=== PATIENT | female | born 1940 | race Caucasian/White ===

== ENCOUNTER 2017-06-26 16:08 | Inpatient (IN) | payer OTHER ==
[~2017-06-26] VITALS: Ht 167.6 cm; Wt 54.5 kg
[~2017-06-26 16:08] MED LIST: AMIODARONE HCL200 MG PO; AMLODIPINE BESY10 MG PO; BENAZEPRIL HCL10 MG PO; BENTYL10 MG PO; CALTRATE 600 +1 EAC2 PO; CARDIZEM CD,CA180 MG PO; CARDIZEM CD360 MG PO; CARDIZEM90 MG PO; CENTRUM SILVER1 EAC3 PO; CIPRO250 MG PO; DILAUDID2 MG PO; DOCUSATE SODIU100 MG PO; ELIQUIS5 MG PO; ENDOCET 5-3251 EACH PO; FISH OIL300 MG PO; HYDROCHLOROTH12.5 M3 PO; LEVOTHYROXINE125 MCG PO; LOPRESSOR25 MG PO; LORAZEPAM0.5 MG PO; MILK OF MAGNESI10 ML PO; MIRALAX255 GM PO; ONDANSETRON4 MG/2 ML PO; PANTOPRAZOLE SO40 MG PO; PERCOCET 5/31 TABLET PO; POLYETHYLENE GL17 GM PO; SIMVASTATIN40 MG PO; SYNTHROID100 MCG PO; TAMBOCOR50 MG PO; TRAMADOL HCL50 MG PO; TYLENOL EXTRA500 MG PO; ZOFRAN4 MG PO; hydrochlorothiazide PO
[2017-06-26 18:19] LABS: ADD MIUA? YES; BILIRUBIN NEGATIVE; BLOOD SMALL; COLOR YELLOW ((YELLOW)); GLUCOSE (STRIP) >=500; KETONES NEGATIVE; LEUKOCYTES SMALL; NITRITE NEGATIVE; PROTEIN (STRIP) 30; SPECIFIC GRAVITY 1.015 (1.000-1.030); UROBILINOGEN 0.2 MG/DL (0.2-1.0)
[2017-06-26 18:22] LABS: EOSINOPHIL (%) 0.1 % (0-5); HEMATOCRIT 44.9 % (36.0-46.0); IMMATURE GRANULOCYTE (%) 0.3 % (0.0-0.7); INSTRUMENT ABS NEUTROPHIL CT 5.7 K/uL; LYMPHOCYTE COUNT 0.8 K/uL (1.0-2.8); MCH 31.3 PG (29.0-34.0); MCHC 32.3 G/DL (30.0-36.0); MCV 96.8 FL (83-99); MEAN PLAT.VOLUME 9.7 uM^3 (9.5-12.4); MONOCYTE (%) 6.7 % (3-12); MONOCYTE COUNT 0.5 K/uL (0-0.8); NEUTROPHIL (%) 80.8 % (45-76); NEUTROPHIL COUNT 5.7 K/uL (1.8-6.4); PLATELET COUNT 393 K/uL (156-360); RBC DIS.WIDTH-CV 12.8 % (11.8-14.6); RBC DIS.WIDTH-SD 45.7 % (39-53); RED BLOOD COUNT 4.64 M/uL (3.80-5.20)
[2017-06-26 18:23] LABS: BACTERIA NONE SEEN /HPF; EPITHELIAL CELLS RARE /HPF; MUCUS TRACE /LPF; RED BLOOD CELLS 0-5 /HPF (0-5); WHITE BLOOD CELLS 0-5 /HPF (0-5)
[2017-06-26 18:30] LABS: CHLORIDE 105 mEq/L (99-109); POTASSIUM 3.6 mEq/L (3.7-5.4); SODIUM 138 mEq/L (136-147)
[2017-06-26 18:32] LABS: GLUCOSE 224 mg/dL (70-99)
[2017-06-26 18:33] LABS: ANION GAP 8 MEQ/L (2-14)
[2017-06-26 18:34] LABS: TOTAL BILIRUBIN 0.4 mg/dL (0.0-1.0)
[2017-06-26 18:36] LABS: ALKALINE PHOSPHATASE 94 IU/L (3-129); GFR ESTIMATE (CALCULATED) 46 mL/min/
[2017-06-26 18:37] LABS: UREA NITROGEN (BUN) 16 mg/dL (9-23)
[2017-06-26 18:41] LABS: TROP-I INTERPRETATION NEGATIVE; TROPONIN-I < 0.01 ng/mL (0.0-0.30)
[2017-06-26] MEDS ORDERED: MEGACE 40 MG40 MG/ML PO (20:15)
[2017-06-26] MEDS ORDERED: FLECAINIDE ACET50 MG PO (20:16)
[2017-06-26] MEDS ORDERED: TAMOXIFEN CITRA20 MG PO (20:16)
[2017-06-26] MEDS ORDERED: CARTIA XT180 MG PO (20:16)
[2017-06-26 21:03] VITALS: BP 177/89
[2017-06-27] VITALS (7 sets, daily range): BP systolic 132–154; BP diastolic 68–77
[2017-06-28] VITALS (8 sets, daily range): BP systolic 134–181; BP diastolic 67–86
[2017-06-28 05:27] LABS: HEMATOCRIT 41.3 % (36.0-46.0); MCH 30.8 PG (29.0-34.0); MCV 96.5 FL (83-99); MEAN PLAT.VOLUME 10.2 uM^3 (9.5-12.4); PLATELET COUNT 321 K/uL (156-360); RBC DIS.WIDTH-SD 46.4 % (39-53); RED BLOOD COUNT 4.28 M/uL (3.80-5.20); WHITE BLOOD COUNT 5.6 K/uL (4.1-10.2)
[2017-06-28 05:57] LABS: ANION GAP 9 MEQ/L (2-14); CHLORIDE 107 MEQ/L (99-109); GFR ESTIMATE (CALCULATED) 57 mL/min/; GLUCOSE 110 mg/dL (70-99); POTASSIUM 4.1 MEQ/L (3.7-5.4); SAMPLE HEMOLYSIS CHECK 0; SAMPLE ICTERIC CHECK 0; SAMPLE LIPEMIA CHECK 0; SODIUM 140 MEQ/L (136-147); UREA NITROGEN (BUN) 9 mg/dL (9-23)
[2017-06-29 04:04] VITALS: BP 139/70
[2017-06-29 07:04] VITALS: BP 139/70
[2017-06-29 08:00] VITALS: BP 156/78
[2017-06-29 11:43] VITALS: BP 147/70
[2017-06-29 16:26] VITALS: BP 167/74
[2017-06-29 20:12] VITALS: BP 140/69
[2017-06-30] VITALS: BP 155/72
[2017-06-30 04:10] VITALS: BP 142/71
[2017-06-30 07:36] VITALS: BP 165/79
[2017-06-30 11:16] VITALS: BP 141/68
[2017-06-30 15:40] VITALS: BP 157/75
== END 2017-06-30 20:05 | disposition home or self-care (01) | DRG 375 ==
LOC: EME → EDBD 16:08 → EME 16:08 → 4EAST 20:15 → EDOF 20:15 → ENRESERV 20:30 → 4EAST 20:56 → ENRESERV 06-28 15:48 → 5EAST 06-28 17:40
PROVIDERS: Emergency Medicine; Family Medicine
DX: C18.9 Malignant neoplasm of colon, unspecified (principal); C78.5 Secondary malignant neoplasm of large intestine and rectum; C78.6 Secondary malignant neoplasm of retroperitoneum and peritoneum; R64 Cachexia; C79.70 Secondary malignant neoplasm of unspecified adrenal gland; C78.00 Secondary malignant neoplasm of unspecified lung; C78.7 Secondary malignant neoplasm of liver and intrahepatic bile duct; I48.2 Chronic atrial fibrillation; I10 Essential (primary) hypertension; E78.5 Hyperlipidemia, unspecified; E89.0 Postprocedural hypothyroidism; K21.9 Gastro-esophageal reflux disease without esophagitis; F41.9 Anxiety disorder, unspecified; N81.2 Incomplete uterovaginal prolapse; Z17.0 Estrogen receptor positive status [ER+]; Z68.1 Body mass index [BMI] 19.9 or less, adult; Z85.850 Personal history of malignant neoplasm of thyroid; Z85.42 Personal history of malignant neoplasm of other parts of uterus; Z86.73 Personal history of transient ischemic attack (TIA), and cerebral infarction without residual deficits
CPT/HCPCS: 74176; 74177; 80048; 80053; 81003; 84484; 85025; 85027; 93005; 99281; 99285; J0692; J0744; J1644; J7030; S0030

== ENCOUNTER 2017-10-17 07:24 | Inpatient (IN) | payer OTHER ==
[~2017-10-17] VITALS: Ht 157.5 cm; Wt 95.6 kg
[~2017-10-17 07:24] MED LIST changes: +CARTIA XT180 MG PO; +FLECAINIDE ACET50 MG PO; +MEGACE 40 MG40 MG/ML PO; +TAMOXIFEN CITRA20 MG PO
[2017-10-17] MEDS ORDERED: ONCE DAILY1 EACH PO (07:42)
[2017-10-17] MEDS ORDERED: CARTIA XT180 MG PO (07:43)
[2017-10-17] MEDS ORDERED: ASPIR 8181 M1 PO (07:44)
[2017-10-17] MEDS ORDERED: VITAMIN C1000 MG PO (07:46)
[2017-10-17] MEDS ORDERED: FISH OIL 1,0001 EAC7 PO (07:46)
[2017-10-17] MEDS ORDERED: CALTRATE 600 +1 EAC1 PO (07:46)
[2017-10-17 08:14] LABS: BASOPHIL (%) 0.3 % (0-1); BASOPHIL COUNT 0.1 K/uL (0-0.1); EOSINOPHIL (%) 0 % (0-5); HEMATOCRIT 40.3 % (36.0-46.0); HEMOGLOBIN 12.6 G/DL (11.9-15.5); IMMATURE GRANULOCYTE (%) 0.5 % (0.0-0.7); LYMPHOCYTE (%) 3.4 % (15-42); LYMPHOCYTE COUNT 0.6 K/uL (1.0-2.8); MCH 30.4 PG (29.0-34.0); MCHC 31.3 G/DL (30.0-36.0); MCV 97.3 FL (83-99); MONOCYTE (%) 4.6 % (3-12); MONOCYTE COUNT 0.9 K/uL (0-0.8); NEUTROPHIL (%) 91.2 % (45-76); NEUTROPHIL COUNT 17.1 K/uL (1.8-6.4); PLATELET COUNT 462 K/uL (156-360); RBC DIS.WIDTH-CV 15.4 % (11.8-14.6); RBC DIS.WIDTH-SD 55.4 % (39-53); RED BLOOD COUNT 4.14 M/uL (3.80-5.20); WHITE BLOOD COUNT 18.7 K/uL (4.1-10.2)
[2017-10-17 08:27] LABS: CHLORIDE 105 mEq/L (99-109); SODIUM 139 mEq/L (136-147)
[2017-10-17 08:28] LABS: GLUCOSE 171 mg/dL (70-99)
[2017-10-17 08:32] LABS: CREATININE 3.1 mg/dL (0.6-1.3); GFR ESTIMATE (CALCULATED) 15 mL/min/
[2017-10-17 08:33] LABS: UREA NITROGEN (BUN) 56 mg/dL (9-23)
[2017-10-17 08:39] LABS: INTER. NORMALIZED RATIO 1.1
[2017-10-17 08:44] LABS: POTASSIUM 6.6 mEq/L (3.7-5.4)
[2017-10-17] MEDS ORDERED: ARIMIDEX1 MG PO (10:39)
[2017-10-17] MEDS ORDERED: FOSAMAX70 MG PO (10:40)
[2017-10-17] MEDS ORDERED: ALEVE220 MG PO (10:45)
[2017-10-17 15:23] LABS: CHLORIDE 105 mEq/L (99-109); POTASSIUM 5.3 mEq/L (3.7-5.4); SODIUM 138 mEq/L (136-147)
[2017-10-17 15:25] LABS: GLUCOSE 179 mg/dL (70-99)
[2017-10-17 15:29] LABS: GFR ESTIMATE (CALCULATED) 19 mL/min/
[2017-10-17 15:30] LABS: UREA NITROGEN (BUN) 51 mg/dL (9-23)
[2017-10-17 15:32] LABS: CREATININE 2.6 mg/dL (0.6-1.3)
[2017-10-17 16:17] VITALS: BP 130/65
[2017-10-17 23:40] VITALS: BP 91/53
[2017-10-18 04:36] VITALS: BP 102/52
[2017-10-18 07:07] LABS: BASOPHIL (%) 0.2 % (0-1); EOSINOPHIL (%) 0.1 % (0-5); HEMATOCRIT 42.4 % (36.0-46.0); HEMOGLOBIN 12.7 G/DL (11.9-15.5); IMMATURE GRANULOCYTE (%) 0.5 % (0.0-0.7); LYMPHOCYTE (%) 3.3 % (15-42); LYMPHOCYTE COUNT 0.6 K/uL (1.0-2.8); MCH 30.2 PG (29.0-34.0); MONOCYTE (%) 6.2 % (3-12); MONOCYTE COUNT 1.1 K/uL (0-0.8); NEUTROPHIL (%) 89.7 % (45-76); NEUTROPHIL COUNT 15.6 K/uL (1.8-6.4); PLATELET COUNT 414 K/uL (156-360); RBC DIS.WIDTH-CV 15.8 % (11.8-14.6); RBC DIS.WIDTH-SD 58.4 % (39-53); WHITE BLOOD COUNT 17.4 K/uL (4.1-10.2)
[2017-10-18 07:41] VITALS: BP 96/53
[2017-10-18 09:44] LABS: ALBUMIN 2.5 G/DL (3.2-4.8); ALKALINE PHOSPHATASE 73 IU/L (3-129); ALT (GPT) 8 IU/L (3-49); AST (GOT) 21 IU/L (2-34); CHLORIDE 106 MEQ/L (99-109); CREATININE 2.5 MG/DL (0.6-1.3); DIRECT BILIRUBIN 0.1 mg/dL (0.0-0.3); GFR ESTIMATE (CALCULATED) 20 mL/min/; GLUCOSE 145 mg/dL (70-99); POTASSIUM 5.8 MEQ/L (3.7-5.4); SODIUM 140 MEQ/L (136-147); TOTAL BILIRUBIN 0.3 MG/DL (0.0-1.0); UREA NITROGEN (BUN) 50 mg/dL (9-23)
[2017-10-18 10:14] LABS: THYROTROPIN (TSH) 9.1 MIU/L (0.4-5.5)
[2017-10-18 11:00] VITALS: BP 98/47
[2017-10-18 11:33] LABS: BASE EXCESS -2.7 mEq/L (-3 to +3); BICARBONATE 25.7 mEq/L (22-26); CARBOXY HGB 2.3 % (0-5); COMMENTS - BLOOD GASES A+C+; DEVICE NC; METHEMOGLOBIN 2.1 % (0-1.5); O2 FLOW 6 L/MIN; PCO2 60 mm Hg (35-45); PO2 64 mm Hg (80-100); SITE LB; pH 7.24 (7.35-7.45)
[2017-10-18 12:27] LABS: BASOPHIL (%) 0.1 % (0-1); EOSINOPHIL (%) 0 % (0-5); HEMATOCRIT 42.3 % (36.0-46.0); HEMOGLOBIN 12.7 G/DL (11.9-15.5); IMMATURE GRANULOCYTE (%) 0.4 % (0.0-0.7); LYMPHOCYTE (%) 2.4 % (15-42); LYMPHOCYTE COUNT 0.4 K/uL (1.0-2.8); MCV 99.8 FL (83-99); MONOCYTE (%) 5.3 % (3-12); MONOCYTE COUNT 0.8 K/uL (0-0.8); NEUTROPHIL (%) 91.8 % (45-76); NEUTROPHIL COUNT 13.9 K/uL (1.8-6.4); PLATELET COUNT 474 K/uL (156-360); RBC DIS.WIDTH-CV 15.7 % (11.8-14.6); RBC DIS.WIDTH-SD 57.1 % (39-53); RED BLOOD COUNT 4.24 M/uL (3.80-5.20); WHITE BLOOD COUNT 15.2 K/uL (4.1-10.2)
[2017-10-18 12:36] LABS: CHLORIDE 104 mEq/L (99-109); INTER. NORMALIZED RATIO 1.1; SODIUM 141 mEq/L (136-147)
[2017-10-18 12:38] LABS: GLUCOSE 148 mg/dL (70-99); POTASSIUM 6.3 mEq/L (3.7-5.4); TOTAL PROTEIN 5.6 g/dL (6.4-8.3)
[2017-10-18 12:39] LABS: PTT 26.9 SEC (25-37)
[2017-10-18 12:40] LABS: TOTAL BILIRUBIN 0.3 mg/dL (0.0-1.0)
[2017-10-18 12:41] LABS: ALKALINE PHOSPHATASE 91 IU/L (3-129)
[2017-10-18 12:42] LABS: CREATININE 2.9 mg/dL (0.6-1.3); GFR ESTIMATE (CALCULATED) 17 mL/min/
[2017-10-18 12:43] LABS: AST (GOT) 28 IU/L (2-34); UREA NITROGEN (BUN) 57 mg/dL (9-23)
[2017-10-18 12:45] LABS: ALT (GPT) 11 IU/L (3-49)
[2017-10-18 12:47] LABS: TROP-I INTERPRETATION NEGATIVE; TROPONIN-I < 0.01 ng/mL (0.0-0.30)
[2017-10-18 17:55] LABS: CHLORIDE 104 MEQ/L (99-109); CREATININE 3.1 MG/DL (0.6-1.3); GFR ESTIMATE (CALCULATED) 15 mL/min/; GLUCOSE 152 mg/dL (70-99); SODIUM 141 MEQ/L (136-147); UREA NITROGEN (BUN) 53 mg/dL (9-23)
[2017-10-18 23:25] VITALS: BP 93/61
[2017-10-19 01:55] LABS: C DIFF TOXIN NEGATIVE (NEGATIVE)
[2017-10-19 06:21] LABS: HEMATOCRIT 42.4 % (36.0-46.0); HEMOGLOBIN 11.9 G/DL (11.9-15.5); MCHC 28.1 G/DL (30.0-36.0); MCV 103.2 FL (83-99); PLATELET COUNT 451 K/uL (156-360); RBC DIS.WIDTH-CV 15.6 % (11.8-14.6); RBC DIS.WIDTH-SD 59.1 % (39-53); RED BLOOD COUNT 4.11 M/uL (3.80-5.20); WHITE BLOOD COUNT 15.3 K/uL (4.1-10.2)
[2017-10-19 07:23] VITALS: BP 135/67
[2017-10-19 07:30] VITALS: BP 95/53
[2017-10-19 11:05] VITALS: BP 88/50
[2017-10-19] MEDS ORDERED: PROTONIX IV40 MG PO (14:58)
[2017-10-19] MEDS ORDERED: MORPHINE CON20 MG/M1 PO (14:59)
[2017-10-19 15:31] VITALS: BP 85/48
== END 2017-10-19 18:17 | disposition hospice, home (50) | DRG 375 ==
LOC: EME 07:24 → 2EAST 09:17 → EDOF 09:17 → 2EAST 09:17 → ENRESERV 11:28 → 2EAST 16:18
PROVIDERS: Emergency Medicine; Family Medicine; Internal Medicine; Internal Medicine Nephrology; Specialist
DX: C78.6 Secondary malignant neoplasm of retroperitoneum and peritoneum (principal); N17.9 Acute kidney failure, unspecified; J90 Pleural effusion, not elsewhere classified; K64.4 Residual hemorrhoidal skin tags; M80.00XA Age-related osteoporosis with current pathological fracture, unspecified site, initial encounter for fracture; C54.1 Malignant neoplasm of endometrium; I48.2 Chronic atrial fibrillation; I10 Essential (primary) hypertension; E78.5 Hyperlipidemia, unspecified; C78.00 Secondary malignant neoplasm of unspecified lung; C78.2 Secondary malignant neoplasm of pleura; C79.89 Secondary malignant neoplasm of other specified sites; C78.7 Secondary malignant neoplasm of liver and intrahepatic bile duct; K21.9 Gastro-esophageal reflux disease without esophagitis; E87.5 Hyperkalemia; R18.8 Other ascites; R64 Cachexia; T39.395A Adverse effect of other nonsteroidal anti-inflammatory drugs [NSAID], initial encounter; Z51.5 Encounter for palliative care; K59.00 Constipation, unspecified; J98.11 Atelectasis; N81.4 Uterovaginal prolapse, unspecified; K63.9 Disease of intestine, unspecified; Z68.38 Body mass index [BMI] 38.0-38.9, adult; Z66 Do not resuscitate; E89.0 Postprocedural hypothyroidism; Z85.42 Personal history of malignant neoplasm of other parts of uterus; Z17.0 Estrogen receptor positive status [ER+]; Z85.850 Personal history of malignant neoplasm of thyroid; Z79.82 Long term (current) use of aspirin; Z86.73 Personal history of transient ischemic attack (TIA), and cerebral infarction without residual deficits; Z90.710 Acquired absence of both cervix and uterus; Z85.3 Personal history of malignant neoplasm of breast; Z85.038 Personal history of other malignant neoplasm of large intestine
CPT/HCPCS: 36600; 71045; 74018; 74176; 80048; 80048 91; 80053; 80076; 82803; 82948; 83605; 84443; 84484; 85025; 85025 91; 85027; 85610; 85730; 87493; 87506; 93005; 94640; 94799; 99202; 99281; 99285; C9113; J0696; J1815; J2270; J2405; J7030